=== PATIENT | male | born 1995 | race Caucasian/White ===

== ENCOUNTER 2021-07-30 14:03 | Emergency (ER) | payer OTHER, SELFPAY | END 2021-07-30 14:05 | disposition left against medical advice (07) | LOC: ANHED 07-31 03:41 | DX: Z53.21 Procedure and treatment not carried out due to patient leaving prior to being seen by health care provider (principal) | CPT/HCPCS: 99199 ==

== ENCOUNTER 2021-07-30 14:06 | Emergency (ER) | payer OTHER, SELFPAY ==
--- NOTE | 2021-07-30 14:12 | ED.EYEPROB ---
HPI - Eye Problem General Chief complaint: Eye Problems Stated complaint: Right eye injury Time Seen by Provider: 07/30/21 14:16 Source: patient and RN notes reviewed Mode of arrival: ambulatory Limitations: no limitations History of Present Illness HPI Narrative: 25-year-old male who presents to [facility] care with complaints of possible foreign body to right eye. He states he was cutting wood and moving wood around when a devora of wind came up and either dirt or piece of wood flew into his right eye,states he was wearing his sun glasses when it happened. Patient states that he tried to wash his right eye out but it continues to feel like something in the outer aspect of his eye with redness, increased watering and discomfort to his right eye present. Patient denies any visual changes with visual acuity 20/25 bilateral eyes without corrective lens. MD chief complaint: eye pain, eye redness and foreign body Onset description: sudden Location: right eye Related Data Allergies Allergy/AdvReac Type Severity Reaction Status Date / Time Sulfa (Sulfonamide Allergy Anaphylactic Verified 07/30/21 14:16 Antibiotics) Shock Review of Systems Review of Systems: CONSTITUTIONAL: Denies fever, chills, or sweats. EYES: Denies visual changes,positive for redness, increase watering of right eye and feeling of foreign body in right eye.. ENT: Denies rhinorrhea, congestion, sore throat, or otalgia. CARDIOVASCULAR: Denies chest pain, palpitations, or edema. RESPIRATORY: Denies cough or dyspnea. GASTROINTESTINAL: Denies abdominal pain, nausea, vomiting, or diarrhea. GENITOURINARY: Denies dysuria or hematuria. SKIN: Denies rash or itching. MUSCULOSKELETAL: Denies back pain, joint pain, or myalgia. NEUROLOGIC: Denies headache, numbness, or weakness. PSYCHIATRIC: Denies anxiety or depression. All systems reviewed & are unremarkable except as noted in HPI and below [facility] Past Medical History Medical History (Updated 07/30/21 @ 14:45 by Yodit Huitron NP) No pertinent past medical history Surgical History Surgical History (Updated 07/30/21 @ 14:47 by Yodit Huitron NP) H/O oral surgery as child History of repair of anterior cruciate ligament of left knee also repair of meniscus from football injury Family History Family History (Updated 07/30/21 @ 14:48 by Yodit Huitron NP) Grandparent Lung cancer Carcinoma of colon Liver transplant status Social History Social History (Updated 07/30/21 @ 14:50 by Yodit Huitron NP) Smoking status: Never smoker Alcohol intake: current Alcohol use details: social Substance use: never Living arrangements: with family Gender identity (if verbalized by the patient): Male Comments At time of signature, agree with nursing past medical, surgical, social and family history. There is no relevant family history pertinent to the presenting complaint Exam Narrative: GENERAL: Well-appearing, well-nourished, and in no acute distress. HEAD: Normocephalic, atraumatic. EYES: PERRLA and EOMI.right eye discomfort with increased watering and redness with feeling of foreign body in right eye after working outside cutting and stacking wood today. visual acuity 20/25 bilateral eyes, see eye procedure ENT: Nares clear, no rhinorrhea or epistaxis. Mucous membranes moist.TM's normal with good light reflex throat pink with no lesions or exudates or any tonsil enlargement. NECK: Supple.no lymphadenopathy CHEST: Clear to auscultation. No respiratory distress. SAO2 100% on room air HEART: Regular rate and rhythm. No murmur heard. Normal peripheral pulses. ABDOMEN: Soft, nontender, nondistended, normal active bowel sounds. EXTREMITIES: Normal range of motion. No edema. SKIN: Warm, dry, no rash. NEURO: No focal deficits. Alert and oriented x3. Course Course Level of Care: Express Care Visit Procedures FB Removal Eye Foreign Body #1: Foreign Body Removal Date: 07/30/21 Cally
[2021-07-30 14:18] VITALS: BP 132/76; PULSE 67; RESP 16; TEMP 37.1; O2SAT 100
== END 2021-07-30 14:37 | disposition home or self-care (01) ==
PROVIDERS: Emergency Provider Registered Nurse
DX: S05.01XA Injury of conjunctiva and corneal abrasion without foreign body, right eye, initial encounter (principal); X58.XXXA Exposure to other specified factors, initial encounter
CPT/HCPCS: 99213; A9270; G0463

== ENCOUNTER 2025-01-24 16:06 | Emergency (ER) | payer SELFPAY ==
--- NOTE | ~2025-01-24 | XR_ITS ---
Exam: X-ray knee left 3 views. CLINICAL HISTORY: Twist TECHNIQUE: 4 images of the left knee were obtained. Comparisons: None. FINDINGS: Orthopedic screw identified about the midline in the tibial plateau without radiographic evidence for loosening. No lateral patellar tilt. Mild narrowing of the medial compartment. No fracture. No dislocation. Soft tissue swelling about the left knee. IMPRESSION: 1. No radiographic evidence for an acute fracture or dislocation. If symptoms persist or worsen, consider short-term follow-up study or additional imaging for further assessment. Reviewed, dictated and finalized at location A. IMPRESSION: 1. No radiographic evidence for an acute fracture or dislocation. If symptoms persist or worsen, consider short-term follow-up study or additiona l imaging for further assessment.
[2025-01-24 16:08] VITALS: BP 135/91; PULSE 89; RESP 16; TEMP 37.4; O2SAT 98
--- OUTSIDE RECORDS SUMMARY | 2025-01-24 16:08 | XMS_ITS | Clinical Summary ---
Author Organization [facility] Address [address] [place] [address] Care Team Providers Care Welfare Project Manager Name Role Phone Gian Wills MD Primary Care Provider Allergies Active Allergy Reactions Criticality Noted Date Comments Sulfa Antibiotics Swelling 07/19/2019 Medications No known medications Active Problems Problem Noted Date Diagnosed Date Loose body in knee, left knee 12/05/2019 Tear of medial meniscus of l eft knee, current, unspecified tear type, initial encounter 12/05/2019 Family History Medical History Relation Comments Heart Father No Known Problems Half-brother 1 No Known Problems Half-brother 2 Epilepsy Half-brother 3 Lung Disease Maternal Grandfather Cancer Maternal Grandmother Allergies Mother Cancer Paternal Grandfather No Known Problems Paternal Grandmother Relation Status Comments Father Alive Half-brother 1 Alive Half-brother 2 Alive Half-brother 3 Alive Maternal Grandfather Maternal Grandmother Mother Alive Paternal Grandfather Alive Paternal Grandmother Alive Social History Tobacco Use Types Packs/Day Years Used Date Smoking Tobacco: Never Smokeless Tobacco: Former Chew Quit: 2017 Alcohol Use Standard Drinks/Week Comments Yes 8.3 (1 standard drink = 0.6 oz p ure alcohol) AUDIT-C Answer Date Recorded Frequency of Alcohol Consumption 2-4 times a fri12/01/2019 Average Number of Drinks Not on file 020 Frequency of Binge Drinking Not on file 11/14 Sex and Gender Information Value Date Recorded Sex Assigned at Not on file 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 Gender Identity Not on file Sexual Orientation Not on file Last Filed Vital Signs Vital Sign Reading Time Taken Comments Blood Pressure 113/83 11/29/2019 12:18 PM CDT Pulse 70 11/29/2019 12:18 PM CDT Temperature 36.2 C (97.1 F) 11/29/2019 11:55 AM CDT Respiratory Rate 20 11/29/2019 11:55 AM CDT Oxygen Saturation 100% 11/29/2019 11:55 AM CDT Inhaled Oxygen Concentration - - Weight 77.1 kg (170 lb) 12/15/2019 9:05 AM CDT Height 175.3 cm (5' 9) 12/15/2019 9:05 AM CDT Body Mass Index 25.1 12/15/2019 9:05 AM CDT Plan of Treatment Health Maintenance Due Date Last Done Comments Annual Physical 1997 Hepatitis C 2012 DTaP, Tdap and Td Vaccines ( 2 - Tdap) 2013 08/18/1998, 1994, 1994 Hepatitis B Vaccines (1 of 3 - 19+ 3-dose series) 2013 HPV Vaccines (1 - 3-dose SCD M series) 2021 COVID-19 Vaccine (2023-2 5 season) 2024 Meningococcal B Vaccine Aged Out No l onger eligible based on patient's age to complete this topic Meningococcal Vaccine Aged Out No carmelita dilma eligible based on patient's age to complete this topic Pneumococcal Vaccine: Pediatrics (0 to 5 Years) and At-Risk Patients (6 to 49 Years) Aged Out No longer eligible b ased on patient's age to complete this topic RSV Immunizations Under 20 Months Aged Out No longer eligible b ased on patient's age to complete this topic Insurance MEDICAID Care Teams Welfare Project Manager Relationship Specialty Start Date End Date Gian Wills MD [address] [place] [phone] PCP - General FAMILY PRACTICE 07/19/19
--- OUTSIDE RECORDS SUMMARY | 2025-01-24 16:08 | XMS_ITS | Encounter Summary ---
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
--- NOTE | 2025-01-24 16:32 | ED_ITS ---
HPI - Extremity Injury (Lower) General Chief Complaint: Extremity Injury, Lower Stated Complaint: left knee pain Time Seen by Provider: 01/24/25 16:23 Source: patient Mode of arrival: ambulatory Limitations: no limitations History of Present Illness HPI Narrative: HYPER EXTENDED LEFT KNEE 2 DAYS AGO DURING PLAYING FOOTBALL. NO OTHER INJURIES. HISTORY OF LEFT KNEE SURGERY IN THE PAST. Related Data Allergies Allergy/AdvReac Type Severity Reaction Status Date / Time Sulfa (Sulfonamide Allergy Anaphylactic Verified 07/30/21 14:16 Antibiotics) Shock Review of Systems Review of Systems: All systems reviewed & are unremarkable except as noted in HPI and below PMFSH Past Medical History Medical History No pertinent past medical history Surgical History Surgical History History of repair of anterior cruciate ligament of left knee also repair of meniscus from football injury H/O oral surgery as child Family History Family History Grandparent Lung cancer Carcinoma of colon Liver transplant status Social History Social History Smoking status: Never smoker Alcohol intake: current Alcohol use details: social Substance use: never Living arrangements: with family Gender identity (if verbalized by the patient): Male Exam Narrative: GENERAL APPEARANCE: WELL-DEVELOPED, WELL-NOURISHED SKIN: NORMAL COLOR HEAD: NORMOCEPHALIC, NONTRAUMATIC EYES: CLEAR CONJUNCTIVA ENT: OROPHARYNX NORMAL, EARS NORMAL, NOSE NORMAL NECK: SUPPLE, NONTENDER CHEST AND RESPIRATORY: AIRWAY PATENT, NO RESPIRATORY DISTRESS, NO ACCESSORY MUSCLE USE HEART: REGULAR RATE/RHYTHM VASCULAR: NORMAL PERIPHERAL PULSES, NORMAL CAPILLARY REFILL. MUSCULOSKELETAL: SLIGHT DIFFUSE TENDERNESS, NO SWELLING, NO BRUISES, NO DEFORMITY OF THE LEFT KNEE, SLIGHT LIMITED RANGE OF MOTION BECAUSE OF PAIN NEUROLOGIC: ALERT AND ORIENTED ?3, OSTEOPATHIC MEDICINE TEACHER IS NORMAL TESTED, NO GROSS MOTOR DEFICIT Course Vital Signs Vital signs: Vital Signs Temperature 37.4 C 01/24/25 16:08 Pulse Rate 89 01/24/25 16:08 Respiratory Rate 16 01/24/25 16:08 Blood Pressure 135/91 H 01/24/25 16:08 Pulse Oximetry 98 01/24/25 16:08 Oxygen Delivery Room Air 01/24/25 16:08 Temperature 37.4 C 01/24/25 16:08 Pulse Rate 89 01/24/25 16:08 Respiratory Rate 16 01/24/25 16:08 Blood Pressure 135/91 H 01/24/25 16:08 Pulse Oximetry 98 01/24/25 16:08 Oxygen Delivery Room Air 01/24/25 16:08 MDM - Extremity Injury (Lower) MDM Narrative Medical decision making narrative: LEFT KNEE PAIN AFTER HYPER EXTENSION SPRAIN/ STRAIN, FRACTURE, INTERNAL INJURY X-RAY OF THE LEFT KNEE SHOWED NO ACUTE OSSEOUS ABNORMALITY Differential Diagnosis Differential diagnosis: Likely other ( ABOVE) Imaging Data Radiologist's impression: Impressions Knee X-Ray 01/24/25 17:22 IMPRESSION: 1. No radiographic evidence for an acute fracture or dislocation. If symptoms persist or worsen, consider short-term follow-up study or additional imaging for further assessment. Critical Care Time Critical Care Time Critical Care Time: No Discharge Plan Discharge Clinical Impression: Knee pain, left Patient Disposition: Home Condition: Stable Instructions: Knee Pain (ED) Additional Instructions: RETURN IF SYMPTOMS ARE WORSENING , CALL YOUR ORTHOPEDIC FOR APPOINTMENT, TAKE TYLENOL, IBUPROFEN NEEDED FOR ACHES AND PAIN, CONTINUE HOME MEDICATIONS. Patient Language: Barbadian Prescriptions: No Action ofloxacin 0.3 % drops See Rx Instructions .ROUTE .COMPLEX Qty: 10 0RF Rx Instructions: put 1-2 drps into affected eye(s) every 2-4 h x 2 days, then 1-2 drps 4 times/day days 3-7 Follow-up/Referrals: Brendon Pedraza M.D. [Primary Care Provider] -
--- OUTSIDE RECORDS SUMMARY | 2025-01-24 17:12 | XMS_ITS | Clinical Summary ---
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
--- OUTSIDE RECORDS SUMMARY | 2025-01-24 17:12 | XMS_ITS | Encounter Summary ---
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
[2025-01-24] MEDS: IBUPROFEN 600 MG TABLET PO (17:37)
[2025-01-24] MEDS: ACETAMINOPHEN 325 MG TABLET 650 MG PO (17:38)
[2025-01-24 18:05] VITALS: BP 132/88; PULSE 80; RESP 20; TEMP 36.9; O2SAT 98
== END 2025-01-24 18:08 | disposition home or self-care (01) ==
PROVIDERS: Emergency Provider Emergency Medicine; PCP Family Medicine
DX: M25.562 Pain in left knee (principal)
CPT/HCPCS: 73562; 99283; A9270; L1830